=== PATIENT | male | born 1995 | race African-American/Black ===

== ENCOUNTER 2025-02-25 14:02 | Emergency (ER) | payer MEDICARE, MEDICAID ==
[~2025-02-25] VITALS: Ht 175.3 cm; Wt 84.0 kg
[2025-02-25 14:07] VITALS: O2SAT 99
[2025-02-25 14:25] VITALS: BP 118/81; PULSE 73; RESP 18; TEMP 36.8; O2SAT 98
[2025-02-25 15:39] LABS: CLARITY URINE CLEAR (CLEAR); COLOR URINE YELLOW (YELLOW); GLUCOSE URINE NEGATIVE (NEGATIVE); KETONES URINE TRACE (NEGATIVE); LEUKOCYTE ESTERASE URINE NEGATIVE (NEGATIVE); NITRITE URINE NEGATIVE (NEGATIVE); OCCULT BLOOD URINE NEGATIVE (NEGATIVE); PROTEIN URINE TRACE (NEGATIVE); SPECIFIC GRAVITY URINE 1.027 (1.005-1.030)
[2025-02-25 16:05] LABS: BACTERIA URINE NONE SEEN; MUCUS URINE 1+ /lpf (NONE/TRACE); RBC URINE NONE SEEN /hpf (0-2); SQUAMOUS EPITHELIAL CELL URINE RARE /lpf (RARE/1+); WBC URINE NONE SEEN /hpf (0-2)
== END 2025-02-25 15:17 | disposition left against medical advice (07) ==
LOC: ER 14:02
DX: A60.02 Herpesviral infection of other male genital organs (principal); Z53.21 Procedure and treatment not carried out due to patient leaving prior to being seen by health care provider
CPT/HCPCS: 81003

== ENCOUNTER 2025-03-01 14:37 | Emergency (ER) | payer MEDICARE, MEDICAID ==
[~2025-03-01] VITALS: Ht 175.3 cm; Wt 83.9 kg
[2025-03-01 14:52] VITALS: BP 113/73; PULSE 89; RESP 16; TEMP 36.7; O2SAT 98
[2025-03-01] MEDS: CEFTRIAXONE SODIUM 500MG VIAL IM ONE (15:30)
[2025-03-01] MEDS: LIDOCAINE HCL/PF 1% 10 MG/ML 5ML VIAL INFIL ONE (15:45)
[2025-03-01 15:55] LABS: CLARITY URINE CLEAR (CLEAR); COLOR URINE DARK YELLOW (YELLOW); GLUCOSE URINE NEGATIVE (NEGATIVE); KETONES URINE TRACE (NEGATIVE); LEUKOCYTE ESTERASE URINE TRACE (NEGATIVE); NITRITE URINE NEGATIVE (NEGATIVE); OCCULT BLOOD URINE NEGATIVE (NEGATIVE); PH URINE 6.5 (4.5-8.0); PROTEIN URINE TRACE (NEGATIVE); SPECIFIC GRAVITY URINE 1.027 (1.005-1.030)
[2025-03-01 16:28] LABS: BACTERIA URINE 1+; RBC URINE NONE SEEN /hpf (0-2); SQUAMOUS EPITHELIAL CELL URINE NONE SEEN /lpf (RARE/1+); YEAST URINE NONE SEEN
[2025-03-01] MEDS ORDERED: DOXY100C5 MT (16:35)
== END 2025-03-01 16:50 | disposition home or self-care (01) ==
LOC: ER 14:37
DX: Z11.3 Encounter for screening for infections with a predominantly sexual mode of transmission (principal); Z86.59 Personal history of other mental and behavioral disorders
CPT/HCPCS: 99283; 87491; 87591; 81003; 96372; J0696; J2003

== ENCOUNTER 2025-04-08 15:52 | Emergency (ER) | payer MEDICARE, MEDICAID ==
[~2025-04-08] VITALS: Ht 175.3 cm; Wt 84.0 kg
[~2025-04-08 15:52] MED LIST: DOXY100C5 MT
[2025-04-08 16:11] VITALS: O2SAT 100
[2025-04-08] MEDS ORDERED: PODO3.5G TP (17:40)
[2025-04-08 18:07] VITALS: BP 112/73; PULSE 65; RESP 16; TEMP 36.9; O2SAT 100
== END 2025-04-08 18:08 | disposition home or self-care (01) ==
LOC: ER 15:52
DX: A63.0 Anogenital (venereal) warts (principal); Z79.899 Other long term (current) drug therapy; Z98.890 Other specified postprocedural states
CPT/HCPCS: 99281